=== PATIENT | female | born 1965 | race Caucasian/White ===

== ENCOUNTER 2018-10-05 20:56 | Emergency (ER) | payer OTHER ==
[~2018-10-05] VITALS: Ht 162.6 cm; Wt 56.7 kg
[2018-10-05 23:01] LABS: ABSOLUTE NEUTROPHILS 11.5 thou/uL (1.4-8.2); BASOPHILS 0.4 % (0.0-2.0); EOSINOPHILS 0.1 % (0.0-3.0); HEMATOCRIT 44.5 % (37.0-47.0); HEMOGLOBIN 15.4 gm/dL (12.0-15.0); LYMPHOCYTES 7.5 % (24.0-44.0); MCH 29.4 pg (26.0-34.0); MCHC 34.6 g/dL (28.0-37.0); MONOCYTES 9.2 % (1.0-8.0); PLATELET COUNT 213 thou/uL (150-400); POLYS 82.8 % (36.0-66.0); RBC 5.23 mil/uL (4.20-5.00); WBC 13.9 thou/uL (4.0-11.0)
[2018-10-05 23:07] LABS: CALCIUM 9.1 mg/dL (8.5-10.1); CREATININE 0.8 mg/dL (0.6-1.0); POTASSIUM 3.4 mmol/L (3.5-5.1)
[2018-10-05 23:14] LABS: ALBUMIN 2.4 g/dL (3.4-5.0); TOTAL BILIRUBIN 0.7 mg/dL (<0.1-1.0); TOTAL PROTEIN 9.2 g/dL (6.4-8.2)
[2018-10-06] MEDS ORDERED: AZITHROMYCIN 2250 MG PO (01:02)
[2018-10-06] MEDS ORDERED: ZOFRAN ODT4 MG SUBLING (01:02)
[2018-10-06] MEDS ORDERED: AUGMENTIN 875-1 EACH PO (01:02)
[2018-10-06 01:08] VITALS: BP 103/45
== END 2018-10-06 01:10 | disposition home or self-care (01) ==
LOC: ER 20:56
PROVIDERS: Emergency Medicine
DX: J18.9 Pneumonia, unspecified organism (principal); F17.210 Nicotine dependence, cigarettes, uncomplicated